=== PATIENT | female | born 1995 | race African-American/Black ===

== ENCOUNTER 2017-05-15 21:34 | Emergency (ER) | payer SELFPAY ==
[~2017-05-15] VITALS: Ht 160 cm; Wt 66.0 kg
[2017-05-15 21:47] VITALS: BP 129/71; PULSE 90; RESP 16
--- NOTE | 2017-05-15 21:47 | PD ---
Physical Exam Date Seen by Provider: May 15, 2017 Time Seen by Provider: 21:46 Narrative 22 yo female here for eval of rectal pain. Going on for 3 weeks. Only with BM. Possible hemorroid?, no bleeding. No injury. Vitals are stable. Awaiting bed placement. [facility] Medical Record Reviewed: Yes Supervised Visit with SHERRY: No Darryl Shay May 15, 2017 21:47
[2017-05-15] MEDS ORDERED: SODIUM CHLORIDE 0.9% FLUSH 10 ML FLUSH IV FLUSH PRN (23:15)
--- NOTE | 2017-05-15 23:15 | PD ---
HPI Chief Complaint: Abdominal Pain Time Seen by Provider: 23:00 Travel History International Travel<30 days: No Contact w/Intl Traveler<30days: No Traveled to known affect area: No History of Present Illness HPI 22-year-old female here for evaluation of rectal pain, lower abdominal pain, vaginal discharge, and abnormal bowel movements. She reports symptoms have been going on for the last 2-3 weeks, had been intermittent, moderate. After she states she was constipated. She denies melena or hematochezia. History of umbilical hernia repair. No other abdominal surgeries. She denies vaginal bleeding. No urinary symptoms. Rectal pain described as a pressure. She denies inserting objects into her rectum as well as rectal intercourse. [facility] Past Medical History Medical History: Denies Significant Hx ?: Unknown LMP: 05/09/17 Past Surgical History Other Surgery: Yes (HERNIA REPAIR ) Social History Alcohol Use: Yes (SOCIALLY) Tobacco Use: No Substance Use: No Allergies-Medications (Allergen,Severity, Reaction): Coded Allergies: No Known Allergies (Unverified , 05/15/17) Reported Meds & Prescriptions Reported Meds & Active Scripts Active No Active Prescriptions or Reported Medications Review of Systems Except as stated in HPI: all other systems reviewed are Neg Physical Exam Narrative GENERAL: Well-developed, well-nourished, comfortable, no acute distress. SKIN: Focused skin assessment warm/dry. No rash. No pallor. HEAD: Atraumatic. Normocephalic. EYES: Pupils equal and round. No scleral icterus. No injection or drainage. ENT: Mucous membranes pink and moist. CARDIOVASCULAR: Regular rate and rhythm. RESPIRATORY: No accessory muscle use. Clear to auscultation. Breath sounds equal bilaterally. GASTROINTESTINAL: Abdomen soft, nondistended. Mild suprapubic tenderness without peritoneal signs. Normal bowel sounds. No hernias. RECTUM: Exam performed in the presence of female nurse. No masses, no hemorrhoids, no fissures, heme-negative brown stool. 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 Normal external genitalia. Normal cervix. Scant/whitish/dpu-qrqo-nscpthzo vaginal discharge. No CMT. No adnexal masses or tenderness. MUSCULOSKELETAL: No obvious deformities. No clubbing. No cyanosis. No edema. NEUROLOGICAL: Awake and alert. No obvious cranial nerve deficits. Motor grossly within normal limits. Normal speech. PSYCHIATRIC: Appropriate mood and affect; insight and judgment normal. Data Data Last Documented VS Vital Signs Date Time Temp Pulse Resp B/P Pulse Ox O2 Delivery O2 Flow Rate FiO2 05/15/17 23:22 100 Room Air 05/15/17 21:47 90 16 129/71 Orders Complete Blood Count With Diff (05/15/17 23:03) Comprehensive Metabolic Panel (05/15/17 23:03) Lipase (05/15/17 23:03) Prothrombin Time / Inr (Pt) (05/15/17 23:03) Act Partial Throm Time (Ptt) (05/15/17 23:03) Urinalysis - C+S If Indicated (05/15/17 23:03) Ct Abd/Pel W Iv Contrast(Rout) (05/15/17 23:03) Iv Access Insert/Monitor (05/15/17 23:03) Ecg Monitoring (05/15/17 23:03) Oximetry (05/15/17 23:03) Sodium Chloride 0.9% Flush (Ns Flush) (05/15/17 23:15) Gc And Chlamydia Pcr (05/15/17 23:03) Wet Prep Profile (05/15/17 23:03) Urine Culture (05/15/17 23:10) Ceftriaxone Inj (Rocephin Inj) (05/16/17 00:00) Iohexol 350 Inj (Omnipaque 350 Inj) (05/16/17 00:36) Labs Laboratory Tests Test 05/15/17 05/15/17 23:10 23:15 Urine Color YELLOW Urine Turbidity HAZY Urine pH 5.5 Urine Specific [place] 1.030 Urine Protein 30 mg/dL Urine Glucose (UA) NEG mg/dL Urine Ketones NEG mg/dL Urine Occult Blood NEG Urine Nitrite POS Urine Bilirubin NEG Urine Urobilinogen 2.0 MG/DL Urine Leukocyte Esterase SMALL Urine RBC 3 /hpf Urine WBC 8 /hpf Urine Squamous Epithelial 1 /hpf Cells Urine Bacteria FEW /hpf Urine Mucus FEW /lpf Microscopic Urinalysis Comment CULTURE INDICATED Clue Cells (Wet Prep) NONE SEEN Vaginal Trichomonas (Wet Prep) NONE SEEN Vaginal Yeast (Wet Prep) NONE SEEN White Blood Count 9.1 TH/MM3 Red Blood Count 4.91 MIL/MM3 Hemoglobin 13.1 GM/DL Hematocrit 40.1 % Mean Corpuscular Volume 81.6 FL Mean Corpuscular Hemoglobin 26.8 PG Mean Corpuscular Hemoglobin 32.8 % Concent Red Cell Distribution Width 14.4 % Platelet Count 184 TH/MM3 Mean Platelet Volume 9.9 FL Neutrophils (%) (Auto) 73.2 % Lymphocytes (%) (Auto) 18.7 % Monocytes (%) (Auto) 6.7 % Eosinophils (%) (Auto) 0.5 % Basophils (%) (Auto) 0.9 % Neutrophils # (Auto) 6.7 TH/MM3 Lymphocytes # (Auto) 1.7 TH/MM3 Monocytes # (Auto) 0.6 TH/MM3 Eosinophils # (Auto) 0.0 TH/MM3 Basophils # (Auto) 0.1 TH/MM3 CBC Comment DIFF FINAL Differential Comment Prothrombin Time 11.5 SEC Prothromb Time International 1.0 RATIO Ratio Activated Partial 24.2 SEC Thromboplast Time Sodium Level 138 MEQ/L Potassium Level 3.7 MEQ/L Chloride Level 107 MEQ/L Carbon Dioxide Level 25.3 MEQ/L Anion Gap 6 MEQ/L Blood Urea Nitrogen 17 MG/DL Creatinine 0.86 MG/DL Estimat Glomerular Filtration 102 ML/MIN Rate Random Glucose 93 MG/DL Calcium Level 8.8 MG/DL Total Bilirubin 0.4 MG/DL Aspartate Amino Transf 11 U/L (AST/SGOT) Alanine Aminotransferase 16 U/L (ALT/SGPT) Alkaline Phosphatase 52 U/L Total Protein 7.3 GM/DL Albumin 4.1 GM/DL Lipase 114 U/L MDM Medical Decision Making Medical Screen Exam Complete: Yes Emergency Medical Condition: Yes Differential Diagnosis IBS, IBD, UTI, colitis, cystitis, PID less likely, hemorrhoids, Narrative Course Vital signs reviewed. CBC is unremarkable. CMP is unremarkable. UA shows hazy urine, 30 protein, positive nitrites, small leukocyte esterase, 8 WBCs, few bacteria, few mucus, culture indicated. Wet prep is negative for yeast, negative for Trichomonas, negative for clue cells. CT abdomen pelvis: No acute findings in the abdomen and pelvis. Patient was made aware of all findings. She is resting comfortably. She was given a dose of 1 g of Rocephin IV for her UA findings. Abdominal exam is benign. Rectal exam is unremarkable, showing no masses, no hemorrhoids, no fissures with heme-negative brown stool. She is stable for discharge home with outpatient follow-up with a primary care physician this week. She states she' ll also follow up with her DRYWALL APPLICATION SUPERVISOR physician this week. I will give her the name of the cemetery vault installer gambling monitor with him to follow-up with as well. She was informed on when to return to the emergency department. She verbalizes understanding and agreement with plan. [facility] Point of Care Internal Pos. & Neg. Controls: Passed Fecal Specimen Occult Blood: Negative Diagnosis Primary Impression: UTI (urinary tract infection) Qualified Code: N30.01 - Acute cystitis with hematuria Additional Impressions: Abdominal pain Qualified Code: R10.30 - Lower abdominal pain Rectal pain Referrals: Aniceto Ayala MD 3 days Cocoa Milling Machine Operator Primary Care Physician 3 days Additional Instructions: Follow-up with a primary care physician this week. Follow-up with your food safety scientist this week. Follow-up with a cemetery vault installer this week. Return to the emergency department for worsening symptoms or any other concerns. Scripts Naproxen (Naprosyn)500 Mg [id number] Mg PO BID #14 TAB Ref 0 Prov:Cholo Toussaint MD 05/16/17 Cefuroxime 500 Mg [id number] Mg PO BID 5 Days Ref 0 Prov:Cholo Toussaint MD 05/16/17 Disposition: 01 DISCHARGE HOME Condition: Stable Cholo Toussaint MD May 15, 2017 23:15
[2017-05-15 23:22] VITALS: O2SAT 100
[2017-05-15 23:29] LABS: AUTOMATED NEUTROPHIL # 6.7 TH/MM3 (1.8-7.7); BASOPHIL # 0.1 TH/MM3 (0-0.2); BASOPHIL % 0.9 % (0.0-2.0); EOSINOPHIL % 0.5 % (0.0-4.0); HEMATOCRIT 40.1 % (35.0-46.0); HEMO FLAGS DIFF FINAL; LYMPH % 18.7 % (9.0-44.0); LYMPHOCYTE # 1.7 TH/MM3 (1.0-4.8); MEAN CELL VOLUME 81.6 FL (80.0-100.0); MEAN CORPUSCULAR HEMOGLOBIN 26.8 PG (27.0-34.0); MEAN CORPUSCULAR HGB CONC 32.8 % (32.0-36.0); MONO % 6.7 % (0.0-8.0); NEUT % 73.2 % (16.0-70.0); PLATELET COUNT 184 TH/MM3 (150-450); RED BLOOD COUNT 4.91 MIL/MM3 (4.00-5.30); RED CELL DISTRIBUTION WIDTH 14.4 % (11.6-17.2); WHITE BLOOD COUNT 9.1 TH/MM3 (4.0-11.0)
[2017-05-15 23:34] LABS: BACTERIA, URINE FEW /hpf; BLOOD, URINE NEG (NEG); GLUCOSE,URINE NEG (NEG); KETONE, URINE NEG (NEG); MUCUS URINE FEW /lpf (OCC); PH, URINE 5.5 (5.0-8.5); SQUAMOUS EPITHELIAL CELL URINE 1 /hpf (0-5); URINE COLOR YELLOW (YELLW/STRAW)
[2017-05-15 23:36] LABS: NITRITE,URINE POS (NEG)
[2017-05-15 23:37] LABS: COMMENT (UR) CULTURE INDICATED; CULTURE IF INDICATED CULTURE INDICATED
[2017-05-15 23:38] LABS: APTT (PATIENT) 24.2 SEC (24.3-30.1); PROTHROMBIN TIME - PATIENT 11.5 SEC (9.8-11.6)
[2017-05-15 23:58] LABS: ANION GAP 6 MEQ/L (5-15); AST (GOT) 11 U/L (16-38); BICARBONATE 25.3 MEQ/L (21.0-32.0); BLOOD UREA NITROGEN 17 MG/DL (7-18); CHLORIDE 107 MEQ/L (98-107); GLOMERULAR FILTRATION RATE 102 ML/MIN (>89); POTASSIUM 3.7 MEQ/L (3.5-5.1); SODIUM (NA) 138 MEQ/L (136-145)
[2017-05-15 23:59] LABS: ALT (GPT) 16 U/L (9-42)
[2017-05-16] MEDS ORDERED: cefTRIAXone INJ 1,000 MG in SODIUM CHLORIDE 0.9% INJ 100 ML IV ONE ×2
[2017-05-16 00:01] LABS: ALKALINE PHOSPHATASE 52 U/L (45-117); TOTAL BILIRUBIN ADULT 0.4 MG/DL (0.2-1.0)
[2017-05-16] MEDS ORDERED: IOHEXOL 350 MG/ML 10 ML VIAL (for RAD DIAG) IV ONE (00:36)
--- NOTE | 2017-05-16 01:00 | RADRPT ---
EXAM DATE/TIME: 05/16/2017 00:22 [facility] COMPARISON: No previous studies available for comparison. INDICATIONS : Rectal pain past 2 weeks. IV CONTRAST: 90 cc Omnipaque 350 (iohexol) IV ORAL CONTRAST: No oral contrast ingested. RADIATION DOSE: 4.79 CTDIvol (mGy) MEDICAL HISTORY : None SURGICAL HISTORY : Hernia repair ENCOUNTER: Initial ACUITY: 2 weeks PAIN SCALE: 4/10 LOCATION: low abdomen and rectum TECHNIQUE: Volumetric scanning of the abdomen and pelvis was performed. Using automated exposure control and ad justment of the mA and/or kV according to patient size, radiation dose was kept as low as reasonably achievable to obtain optimal diagnostic quality images. DICOM format image data is available electro nically for review and comparison. FINDINGS: LOWER LUNGS: The visualized lower lungs are clear. LIVER: Homogeneous density without lesion. There is no dilation of the biliary tree. No calcified gallston es. SPLEEN: Normal size without lesion. PANCREAS: Within normal limits. KIDNEYS: Normal in size and shape. There is no mass, stone or hydronephrosis. ADRENAL GLANDS: Within normal limits. VASCULAR: There is no aortic aneurysm. BOWEL/MESENTERY: No evidence of bowel dilatation. No free air or free fluid. Appendix within normal limits. ABDOMINAL WALL: Within normal limits. RETROPERITONEUM: There is no lymphadenopathy. BLADDER: No wall thickening or mass. REPRODUCTIVE: Within normal limits. INGUINAL: There is no lymphadenopathy or hernia. MUSCULOSKELETAL: Within normal limits for patient age. CONCLUSION: No acute findings in the abdomen and pelvis. Yannick Guidry MD on May 16, 2017 at 0:55 Board Certified Radiologist. This report was verified electronically.
[2017-05-16] MEDS ORDERED: CEFU1TAB20 PO (01:09)
[2017-05-16] MEDS ORDERED: NAPR500 PO (01:09)
[2017-05-16 01:11] LABS: CHLAMYDIA PCR NOT DETECTED (NOT DETECT); NEISSERIA PCR DETECTED (NOT DETECT)
== END 2017-05-16 01:22 | disposition home or self-care (01) ==
LOC: NEPD 21:34
DX: N39.0 Urinary tract infection, site not specified (principal); R10.9 Unspecified abdominal pain; K62.89 Other specified diseases of anus and rectum; N89.8 Other specified noninflammatory disorders of vagina; K59.00 Constipation, unspecified
CPT/HCPCS: 74177; 80053; 81001; 83690; 85025; 85610; 85730; 87077; 87086; 87186; 87210; 87491; 87591; 96365; 99285; J0696; Q9967

== ENCOUNTER 2017-10-15 14:17 | Emergency (ER) | payer MEDICAID ==
[~2017-10-15 14:17] MED LIST: CEFU1TAB20 PO; NAPR500 PO
[2017-10-15 14:18] VITALS: BP 122/83; PULSE 83; RESP 15; TEMP 98.5; O2SAT 100
--- NOTE | 2017-10-15 15:28 | PD ---
HPI Chief Complaint: Cold / Flu Symptoms Time Seen by Provider: 15:05 Travel History International Travel<30 days: No Contact w/Intl Traveler<30days: No Traveled to known affect area: No History of Present Illness HPI 22 YO F presents to the ED for evaluation of 1 week history of sore throat, sinus congestion, runny nose, nonproductive cough, chills. Gradual onset. No alleviating or exacerbating factors reported. Patient also endorses chest pain associated with coughing. 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 She did not receive this years flu vaccination. No treatment attempted at home. PFSH Past Surgical History Other Surgery: Yes (HERNIA REPAIR ) Social History Alcohol Use: Yes (SOCIALLY) Tobacco Use: No Substance Use: No Allergies-Medications (Allergen,Severity, Reaction): Coded Allergies: No Known Allergies (Unverified , 05/15/17) Reported Meds & Prescriptions Reported Meds & Active Scripts Active Tessalon Perles (Benzonatate) 100 Mg Cap 200 Mg PO TID PRN Magic Mouthwash Adult Liq (Multi-Ingredient Mouthwash/Gargle) 120 Ml Susp 5 Ml SWISH-SWAL ACHS Each 5mL contains: Nystatin 200,000units, Diphenhydramine 4.25mg, Viscous Lidocaine 10mg, Pacheco syrup 0.8 mL Naprosyn (Naproxen) 500 Mg Tab 500 Mg PO BID Cefuroxime (Cefuroxime Axetil) 500 Mg Tab 500 Mg PO BID 5 Days Review of Systems Except as stated in HPI: all other systems reviewed are Neg Physical Exam Narrative GENERAL: Well-nourished, well-developed nontoxic appearing female in no acute distress. SKIN: Warm and dry. HEAD: Normocephalic. Atraumatic. EYES: No scleral icterus. No injection or drainage. PERRLA. EOMI. ENT: Pearly pruitt tympanic membranes bilaterally. Nasal mucosa is moist. Posterior oropharyngeal erythema noted. Tonsils 1+ bilaterally. No exudate. Uvula midline. Airway patent. NECK: Supple, trachea midline. No JVD or lymphadenopathy. CARDIOVASCULAR: Regular rate and rhythm without murmurs, gallops, or rubs. RESPIRATORY: Breath sounds clear and equal bilaterally. No accessory muscle use. CHEST: Nontender throughout without deformity or crepitus. GASTROINTESTINAL: Abdomen soft, non-tender, nondistended. + Bowel sounds MUSCULOSKELETAL: No cyanosis, or edema. Full, active range of motion. Strength 5/5. Neurovascularly intact. BACK: Nontender without obvious deformity. No CVA tenderness. Data Data Last Documented VS Vital Signs Date Time Temp Pulse Resp B/P (MAP) Pulse Ox O2 Delivery O2 Flow Rate FiO2 10/15/17 16:48 10/15/17 14:18 98.5 83 15 100 Orders Orders Chest, Pa & Lat (10/15/17 ) Influenzae A/B Antigen (10/15/17 15:37) Ed Discharge Order (10/15/17 16:29) Group A Rapid Strep Screen (10/15/17 16:30) MDM Medical Decision Making Medical Screen Exam Complete: Yes Emergency Medical Condition: Yes Differential Diagnosis Viral syndrome versus influenza versus pharyngitis versus strep pharyngitis versus influenza versus pleuritic chest pain versus other Narrative Course 22 YO F presents to the ED for evaluation of 1 week history of sore throat, sinus congestion, runny nose, nonproductive cough, chills. Patient also endorses chest pain associated with coughing. 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 She did not receive this years flu vaccination. Vitals reviewed. Patient is nontoxic-appearing on presentation. ENT exam reveals mild posterior erythema but is otherwise unremarkable. Flu swab negative. Chest x-ray negative. Rapid strep swab pending. Low suspicious for strep. This is viral syndrome and pharyngitis. Patient was prescribed Magic mouthwash and Tessalon Perles. She is instructed to rest, hydrate, return to activities as tolerated, continue with over-the- counter symptomatic treatment, follow-up with her primary care provider. She was informed that she'll receive a phone call should the strep swab be positive and require antibiotic treatment. She is agreeable with the care plan. She is stable and discharged home. Diagnosis Primary Impression: Viral syndrome Additional Impression: Pharyngitis Qualified Codes: J02.9 - Acute pharyngitis, unspecified Referrals: Primary Care Physician Patient Instructions: General Instructions, Viral Syndrome (ED) Additional Instructions: Rest, hydrate. Push fluids such as sports drinks, Pedialyte, popsicles, clear broth. Continue with symptomatic treatment with OTC medications. Alternating Motrin and Tylenol every 4-6 hours as needed for continued fever. Increase handwashing frequently to avoid the spread of the virus to other family members and the community. Replace toothbrush at the end of this illness. Follow-up with the primary care provider this week. Return to the ED for any urgent or emergent medical condition. Med/Other Pt SpecificInfo: Prescription(s) given Scripts Benzonatate (Tessalon Perles) 100 Mg Cap 200 MG PO TID Y for COUGH, #15 CAP 0 Refills Prov: Rik Walker MD 10/15/17 Kqxmhrjw-Rcnaoyjhhqeueoo-Qqrydiryj Liq (Magic Mouthwash Adult Liq) 120 Ml Susp 5 ML SWISH-SWAL ACHS for Sore Throat, #120 ML 0 Refills Each 5mL contains: Nystatin 200,000units, Diphenhydramine 4.25mg, Viscous Lidocaine 10mg, Pacheco syrup 0.8 mL Prov: Rik Walker MD 10/15/17 Disposition: 01 DISCHARGE HOME Condition: Stable Danette Clinton Oct 15, 2017 15:28
--- NOTE | 2017-10-15 16:04 | RADRPT ---
EXAM DATE/TIME: 10/15/2017 15:24 [facility] COMPARISON: No previous studies available for comparison. INDICATIONS : Cough MEDICAL HISTORY : None. SURGICAL HISTORY : None. ENCOUNTER: Initial ACUITY: 1 week PAIN SCORE: 0/10 LOCATION: Bilateral chest FINDINGS: PA and lateral views of the chest demonstrate the lungs to be symmetrically aerated without evidence of mass, infiltrate or effusion. The cardiomediastinal contours are unremarkable. Osseous structure s are intact. CONCLUSION: 1. No acute cardiopulmonary disease. Akil Ford MD on October 15, 2017 at 16:02 Board Certified Radiologist. This report was verified electronically.
[2017-10-15] MEDS ORDERED: BENZ100 PO (16:29)
[2017-10-15] MEDS ORDERED: MAGICADU2 SWISH-SWAL (16:29)
== END 2017-10-15 16:49 | disposition home or self-care (01) ==
LOC: NEPK 14:17
DX: B34.9 Viral infection, unspecified (principal); R07.9 Chest pain, unspecified; Z98.890 Other specified postprocedural states
CPT/HCPCS: 71020; 87081; 87804; 87880; 99284

== ENCOUNTER 2017-12-01 16:05 | Emergency (ER) | payer SELFPAY ==
[~2017-12-01] VITALS: Ht 160 cm; Wt 65.0 kg
[~2017-12-01 16:05] MED LIST changes: +BENZ100 PO; +MAGICADU2 SWISH-SWAL
[2017-12-01 16:08] VITALS: BP 119/71; PULSE 92; RESP 13; TEMP 98.3; O2SAT 100
== END 2017-12-01 20:48 | disposition left against medical advice (07) ==
LOC: NED 16:05
DX: R10.9 Unspecified abdominal pain (principal)
CPT/HCPCS: 99281